=== PATIENT | male | born 1990 | race Caucasian/White ===

== ENCOUNTER 2023-06-04 12:13 | Emergency (ER) | payer OTHER ==
[~2023-06-04] VITALS: Ht 172.7 cm; Wt 97.7 kg
[2023-06-04 12:16] VITALS: TEMP 98.6
[2023-06-04] MEDS ORDERED: PHENYLEPHRINE HCL 10 MG/ML 5 ML VIAL IVP ONE (13:45)
[2023-06-04] MEDS ORDERED: PHENYLEPHRINE HCL 10 MG/ML 5 ML VIAL SQ ONE ×3 (13:45→14:45)
[2023-06-04] MEDS ORDERED: PHENYLEPHRINE HCL 10 MG/ML VIAL SQ ONE (14:00)
[2023-06-04] MEDS: TERBUTALINE SULFATE 1 MG/ML VIAL SQ ONE (14:09)
[2023-06-04] MEDS: LIDOCAINE 1% 10 ML VIAL SQ ONE (14:09)
[2023-06-04] MEDS: PHENYLEPHRINE HCL 10 MG/ML VIAL IVP ONE (14:10)
[2023-06-04] MEDS: ONDANSETRON HCL 4 MG/2 ML VIAL IVP ONE (14:34)
[2023-06-04] MEDS: HYDROmorphone HCL 2 MG/ML SYRINGE IVP ONE (14:34)
[2023-06-04] MEDS: PHENYLEPHRINE HCL 10 MG/ML VIAL SQ ONE ×2 (14:47→14:48)
[2023-06-04 15:17] LABS: BASOPHILS % (AUTO) 0.8 % (0.0-2.0); EOSINOPHILS % (AUTO) 0.5 % (1.0-6.0); HEMATOCRIT 46.8 % (41-53); HEMOGLOBIN 15.3 g/dL (13.5-17.5); LYMPHOCYTES # (AUTO) 2.3 K/uL (1.0-4.8); LYMPHOCYTES % (AUTO) 27.2 % (22.0-44.0); MEAN CORPUSCULAR HEMOGLOBIN 29.2 pg (26.0-34.0); MEAN CORPUSCULAR HGB CONC 32.7 G/dL (31.0-37.0); MEAN CORPUSCULAR VOLUME 89 fL (80-100); MONOCYTES # (AUTO) 0.6 K/uL (0.1-1.0); MONOCYTES % (AUTO) 7.4 % (2.0-9.0); NEUTROPHILS # (AUTO) 5.4 K/uL (1.8-7.7); NEUTROPHILS % (AUTO) 64.1 % (40.0-70.0); PLATELET COUNT (AUTO) 393 K/uL (150-450); RED BLOOD CELL COUNT(AUTO) 5.25 MIL/uL (4.50-5.90); RED CELL DISTRIBUTION WIDTH 15.1 % (11.5-14.5); WHITE BLOOD COUNT (AUTO) 8.4 K/uL (4.5-11.0)
[2023-06-04 15:26] LABS: ANION GAP 8 mmol/L (8-16); CALCIUM, TOTAL 8.7 mg/dL (8.8-10.5); CARBON DIOXIDE 29 mmol/L (22-29); CHLORIDE 106 mmol/L (98-107); CREATININE 1.17 mg/dL (0.60-1.30); GLOMERULAR FILTR. RATE CALC > 60 mL/min (>60); GLUCOSE,RANDOM 115 mg/dL (70-110); POTASSIUM 3.9 mmol/L (3.5-5.1); SODIUM SERUM 143 mmol/L (136-145); UREA NITROGEN, BLOOD 16 mg/dL (7-18)
[2023-06-04 15:33] LABS: ALANINE AMINOTRANSFERASE 26 U/L (12-78); ALBUMIN 3.9 g/dL (3.4-5.0); ALKALINE PHOSPHATASE 53 U/L (46-116); ASPARTATE AMINOTRANSFERASE 19 U/L (15-37); BILIRUBIN,TOTAL 0.2 mg/dL (0.1-1.0); TOTAL PROTEIN, SERUM 7.9 g/dL (6.4-8.2)
[2023-06-04 16:00] VITALS: BP 138/64; PULSE 78; RESP 18
== END 2023-06-04 16:22 | disposition home or self-care (01) ==
LOC: EMS 12:13
DX: N48.30 Priapism, unspecified (principal)
CPT/HCPCS: 99291; 54220; 96374; 96375; 80053; 85025; 36415; J1170; J2405; J3105; J3490; J2370